=== PATIENT | male | born 1965 | race Caucasian/White ===

== ENCOUNTER → 2019-06-09 | Day surgery (SDC) | payer BC ==
[~2019-06-09] MED LIST: HYDROmorphone 2 MG/ML VIAL IV PRN; IV RINGERS,LACTATED 1000ML 1,000 ML IV SCH; MORPHINE SULFATE 2 MG/ML VIAL. IV PRN; OLME5TAB4 PO; ONDANSETRON PF 4 MG/2 ML VIAL. IV PRN; PROCHLORPERAZINE 10 MG/2 ML VIAL. IV PRN; PROPOFOL 60 ML IV ONE; fentaNYL PF VIAL 100 MCG/2 ML VIAL IV PRN
[2019-06-09 13:40] VITALS: BP 132/70
--- NOTE | 2019-07-18 08:54 | PDOC1 ---
History and Physical Date of Admission Date of Admission DATE: 06/09/19 TIME: 08:52 Identification/Chief Complaint Chief Complaint Screening colonoscopy Source Source: Patient History of Present Illness History of Present Illness Patient is a 54-year-old male who is never had a colonoscopy has no colon complaints at this time is here for screening colonoscopy Past Medical History Cardiovascular: No pertinent hx Pulmonary: Other (sleep apnea) GI: No pertinent hx Heme/Onc: No pertinent hx Hepatobiliary: No pertinent hx Psych: No pertinent hx Rheumatologic: No pertinent hx Infectious disease: No pertinent hx ENT: No pertinent hx Renal/: No pertinent hx Endocrine: No pertinent hx Dermatology: No pertinent hx Past Surgical History Past Surgical History: No pertinent history Family History Family History: No Significant Social History Smoke: No ALCOHOL: none Drugs: None Current Medications Current Medications Current Medications Ondansetron HCl (Zofran) 4 mg PRN Q6HRS PRN IV NAUSEA/VOMITING; Start 06/09/19 at 07:00; Stop 06/10/19 at 06:59; Status DC Fentanyl Citrate (Fentanyl 2ml Vial) 25 mcg PRN Q5MIN PRN IV MILD PAIN 1-3; Start 06/09/19 at 07:00; Stop 06/10/19 at 06:59; Status DC Fentanyl Citrate (Fentanyl 2ml Vial) 50 mcg PRN Q5MIN PRN IV MODERATE TO SEVERE PAIN; Start 06/09/19 at 07:00; Stop 06/10/19 at 06:59; Status DC Morphine Sulfate (Morphine Sulfate) 1 mg PRN Q10MIN PRN IV SEVERE PAIN 7-10; Start 06/09/19 at 07:00; Stop 06/10/19 at 06:59; Status DC Ringer's Solution 1,000 ml @ 30 mls/hr Q24H IV Last administered on 06/09/19at 12:35; Start 06/09/19 at 07:00; Stop 06/09/19 at 18:59; Status DC Hydromorphone HCl (Dilaudid) 0.5 mg PRN Q10MIN PRN IV SEV PAIN, Second choice; Start 06/09/19 at 07:00; Stop 06/10/19 at 06:59; Status DC Prochlorperazine Edisylate (Compazine) 5 mg PACU PRN PRN IV NAUSEA, MRX1; Start 06/09/19 at 07:00; Stop 06/10/19 at 06:59; Status DC Propofol 60 ml @ As Directed STK-MED ONCE IV ; Start 06/09/19 at 13:07; Stop 06/09/19 at 13:08; Status DC Active Scripts Active Reported Benicar (Olmesartan Medoxomil) 5 Mg Tablet 5 Mg PO DAILY Allergies Allergies: Coded Allergies: Penicillins (Verified Allergy, Intermediate, rash, 06/09/19) Physical Exam General: Alert, Oriented X3, Cooperative, No acute distress HEENT: Atraumatic, PERRLA, EOMI Lungs: Clear to auscultation, Normal air movement Heart: RRR Abdomen: Normal bowel sounds, Soft, No tenderness Rectal Exam: not examined Extremities: No edema Neuro: Normal speech VTE Prophylaxis Ordered VTE Prophylaxis Devices: No VTE Pharmacological Prophylaxi: No Assessment/Plan Assessment/Plan Screening colonoscopy TOMMY CARTER MD Jul 18, 2019 08:54
== END ==
LOC: ENDOS 12:00
PROVIDERS: ATTEND Surgery
DX: Z12.11 Encounter for screening for malignant neoplasm of colon (principal); K57.30 Diverticulosis of large intestine without perforation or abscess without bleeding; G47.30 Sleep apnea, unspecified; I10 Essential (primary) hypertension; E66.9 Obesity, unspecified; Z68.36 Body mass index [BMI] 36.0-36.9, adult; Z72.89 Other problems related to lifestyle; Z88.0 Allergy status to penicillin
CPT/HCPCS: 45378; J2704

== ENCOUNTER → 2020-12-31 | Outpatient (CLI) | payer BC ==
[2019-06-09 13:40] VITALS: BP 132/70
[~2020-12-31] MED LIST changes: -HYDROmorphone 2 MG/ML VIAL IV PRN; -IV RINGERS,LACTATED 1000ML 1,000 ML IV SCH; -MORPHINE SULFATE 2 MG/ML VIAL. IV PRN; -ONDANSETRON PF 4 MG/2 ML VIAL. IV PRN; -PROCHLORPERAZINE 10 MG/2 ML VIAL. IV PRN; -PROPOFOL 60 ML IV ONE; -fentaNYL PF VIAL 100 MCG/2 ML VIAL IV PRN
--- NOTE | 2020-12-31 09:12 | KCIC ---
EXAM: ULTRASOUND ABDOMEN COMPLETE CLINICAL HISTORY: Reason: ELEVATED LIVER ENZYMES / Spl. Instructions: / History: COMPARISON: None available. TECHNIQUE: Ultrasound of the upper abdomen was performed. FINDINGS: The pancreas, aorta, IVC are not well-visualized due to bowel gas. There is increased echogenicity id entified throughout the liver likely hepatic steatosis. The liver length measures 1.9 cm. No evidence of gallstones. The common bile duct measures 3.2 mm in transverse dimension. The right kidney measur es 12.3 x 6.1 x 6.4 cm. The left kidney measures 13.7 x 5.6 x 6.0 cm. The spleen measures 14.6 cm in length. IMPRESSION: 1. Hepatomegaly with hepatic steatosis. 2. Splenomegaly. Electronically signed by: Tolu Cantrell MD (12/31/2020 9:09 AM) [id number]
== END ==
LOC: KCIC US 08:13
PROVIDERS: ATTEND Family Medicine
DX: R16.2 Hepatomegaly with splenomegaly, not elsewhere classified (principal); K76.0 Fatty (change of) liver, not elsewhere classified; R74.8 Abnormal levels of other serum enzymes
CPT/HCPCS: 76700

== ENCOUNTER 2021-09-01 11:49 | Inpatient (IN) | payer BC ==
[~2021-09-01] VITALS: Ht 185.4 cm; Wt 135.1 kg
[2021-09-01 12:57] LABS: BASO # 0.1 x10^3/uL (0.0-0.2); BASO % 1 % (0-3); EOS # 0.1 x10^3/uL (0.0-0.7); EOS % 3 % (0-3); HEMATOCRIT 40.5 % (39.0-53.0); HEMOGLOBIN 13.8 g/dL (13.0-17.5); LYMPH # 1.1 x10^3/uL (1.0-4.8); LYMPH % 19 % (24-48); MEAN CORPUSCULAR HEMOGLOBIN 33 pg (25-35); MEAN CORPUSCULAR HGB CONC 34 g/dL (31-37); MEAN CORPUSCULAR VOLUME 98 fL (79-100); MONO # 0.5 x10^3/uL (0.0-1.1); MONO % 9 % (0-9); NEUT # 3.9 x10^3/uL (1.8-7.7); NEUT % 69 % (31-73); PLATELET COUNT 181 x10^3/uL (140-400); RED BLOOD COUNT 4.15 x10^6/uL (4.30-5.70); RED CELL DISTRIBUTION WIDTH 12.6 % (11.5-14.5); WHITE BLOOD COUNT 5.7 x10^3/uL (4.0-11.0)
--- NOTE | 2021-09-01 13:00 | RAD ---
EXAM: Chest, single view. HISTORY: Swelling. COMPARISON: None. FINDINGS: A frontal view of the chest is obtained. There are small focal opacity overlying the bilate ral upper lobes and right mid to lower thorax possibly due to atelectasis, scarring or infiltrate. Th ere is no consolidation, pleural effusion or pneumothorax. There is a prominent cardiac silhouette. IMPRESSION: Bilateral focal atelectasis, scarring or interstitial infiltrate. There is no consolidate d pneumonia. Electronically signed by: Guerline Olvera MD (09/01/2021 12:58 PM) [id number]
[2021-09-01 13:05] LABS: PROTHROMBIN TIME PATIENT 12.7 SEC (11.7-14.0)
[2021-09-01 13:09] LABS: CALCIUM 8.3 mg/dL (8.5-10.1); CREATININE 1.1 mg/dL (0.7-1.3)
[2021-09-01 13:16] LABS: ALBUMIN 3.3 g/dL (3.4-5.0); ALBUMIN/GLOBULIN RATIO 0.8 (1.0-1.7); TOTAL BILIRUBIN 0.3 mg/dL (0.2-1.0); TOTAL PROTEIN 7.2 g/dL (6.4-8.2)
[2021-09-01] MEDS ORDERED: IOHEXOL 350 MG/ML 100 ML VIAL. IV ONE (13:30)
[2021-09-01] MEDS ORDERED: CONTRAST GIVEN. MC PRN (13:30)
--- NOTE | 2021-09-01 13:32 | RAD ---
US DPLX VENOUS EXTREMITY LOWER LT History: Reason: LLE swelling / Spl. Instructions: / History: Comparison: None. Technique: Multiple longitudinal and transverse high resolution real-time images of the venous system of left lower extremity were obtained with color and Doppler sampling. Findings: Deep vein thrombosis throughout the left lower extremity involving the common femoral, deep femoral, superficial femoral, popliteal and calf veins. There is occlusive thrombus within the superficial fem oral through the calf veins. Impression: 1. Extensive deep vein thrombosis throughout the left lower extremity. Electronically signed by: Phillip Newton DO (09/01/2021 1:30 PM) [id number]
[2021-09-01] MEDS ORDERED: HEPARIN for IV BOLUS 10,000 UNIT/10 ML VIAL. IV ONE (14:00)
[2021-09-01] MEDS ORDERED: HEPARIN for IV BOLUS 10,000 UNIT/10 ML VIAL. IV PRN (14:00)
--- NOTE | 2021-09-01 14:09 | RAD ---
Examination: CT angiography chest with IV contrast HISTORY: Pulmonary embolism, History of positive for DVT COMPARISON: None available TECHNIQUE: Axial CT angiographic images were performed with IV contrast. Coronal and sagittal 3-D MIP reformats are performed Exposure: One or more of the following individualized dose reduction techniques were utilized for thi s examination: 1. Automated exposure control 2. Adjustment of the mA and/or kV according to patient size 3. Use of iterative reconstruction technique. FINDINGS: The central airways are patent. The caliber of the aorta grossly appears unremarkable. There is no ev idence of filling defect identified in the main pulmonary arterial trunk. There is filling defect gautam ntified in the distal right and left main pulmonary arteries extending into the left upper lobe, left lingular, left lower lobe, right upper lobe and right lower lobe pulmonary arterial branches likely multiple pulmonary emboli. Coronary artery calcifications identified. Minimal bibasilar lung atelectasis. Diffuse decreased atte nuation noted in the liver likely hepatic steatosis. The spleen, adrenals grossly appears unremarkabl e Moderate degenerative changes thoracic spine. IMPRESSION: 1. Multiple filling defects identified in the distal right and left main pulmonary arteries extendin g into the left upper lobe, left lower lobe, right upper lobe and right lower lobe pulmonary arterial branches likely multiple pulmonary emboli. 2. Coronary artery calcifications. 3. Hepatic steatosis. FOR INTERNAL CODING PURPOSES Critical results called to [facility] at 09/01/2021 2:00 PM. RESULT CODE: (C) 1. Electronically signed by: Tolu Cantrell MD (09/01/2021 2:06 PM) [id number]
[2021-09-01] MEDS: HEPARIN 25,000UTS/250ML PREMIX 250 ML IV PRN (15:16)
--- NOTE | 2021-09-01 16:36 | PHYS DOC ---
Past Medical History Past Surgical History: Other Additional Past Surgical Histo: EYE SURGERY Smoking Status: Never Smoker Alcohol Use: Heavy Additional Information: daily beer drinker Adult General Chief Complaint Chief Complaint: LOWER EXT PAIN HPI HPI The patient is a 56-year-old male with a history of hypertension and who is otherwise healthy. He has a history of what sounds like an episode of superficial thrombophlebitis in the past affecting one of his legs. He presents for evaluation of about 2 weeks of progressive swelling and discomfort to his entire left leg. Primary doctor was concerned about DVT so sent him in for evaluation. Patient denies any other focal or specific symptoms and specifically denies fevers, nausea or vomiting, upper respiratory congestion/rhinorrhea, cough, sore throat, shortness of breath or chest pain of any kind, abdominal pain of any kind, flank pain, midline back pain, dysuria, hematuria, polyuria or oliguria, changes in bowel habits. Patient is alert and pleasantly and appropriately interactive and in no acute distress with appropriate vital signs upon initial evaluation here in the emergency department. Review of Systems Review of Systems A 12 point review of systems was completed and was negative except where noted in HPI above. Current Medications Current Medications Current Medications Medications (Trade) Dose Ordered Sig/Sanchez Start Time Stop Time Status Last Admin Dose Admin Heparin Sodium (Porcine) (Heparin Sodium) 2,050 unit PRN Q6HRS PRN 09/01/21 14:00 Heparin Sodium/ Dextrose 250 ml @ 20 mls/hr CONT PRN 09/01/21 14:00 09/01/21 15:16 20 MLS/HR Info (CONTRAST GIVEN -- Rx MONITORING) 1 each PRN DAILY PRN 09/01/21 13:30 09/03/21 13:29 Iohexol (Omnipaque 350 Mg/ml) 100 ml 1X ONCE 09/01/21 13:30 09/01/21 13:31 DC 09/01/21 13:33 100 ML Allergies Allergies Allergies Coded Allergies Type Severity Reaction Last Updated Verified Penicillins Allergy Intermediate rash 06/09/19 Yes Physical Exam Physical Exam Sinus rhythm, rate 83, no acute ST elevation or depression, MA 160, QRS 104, QTc 440, EP interpretation. Nonischemic tracing, intervals appropriate. Current Patient Data Vital Signs Vital Signs Date Time Temp Pulse Resp B/P (MAP) Pulse Ox O2 Delivery O2 Flow Rate FiO2 09/01/21 14:04 80 20 163/81 (108) 96 Room Air 09/01/21 11:57 98.1 98.1 Lab Values Laboratory Tests Test 09/01/21 12:40 09/01/21 14:03 White Blood Count 5.7 x10^3/uL (4.0-11.0) Red Blood Count 4.15 x10^6/uL (4.30-5.70) L Hemoglobin 13.8 g/dL (13.0-17.5) Hematocrit 40.5 % (39.0-53.0) Mean Corpuscular Volume 98 fL (79-100) Mean Corpuscular Hemoglobin 33 pg (25-35) Mean Corpuscular Hemoglobin Concent 34 g/dL (31-37) Red Cell Distribution Width 12.6 % (11.5-14.5) Platelet Count 181 x10^3/uL (140-400) Neutrophils (%) (Auto) 69 % (31-73) Lymphocytes (%) (Auto) 19 % (24-48) L Monocytes (%) (Auto) 9 % (0-9) Eosinophils (%) (Auto) 3 % (0-3) Basophils (%) (Auto) 1 % (0-3) Neutrophils # (Auto) 3.9 x10^3/uL (1.8-7.7) Lymphocytes # (Auto) 1.1 x10^3/uL (1.0-4.8) Monocytes # (Auto) 0.5 x10^3/uL (0.0-1.1) Eosinophils # (Auto) 0.1 x10^3/uL (0.0-0.7) Basophils # (Auto) 0.1 x10^3/uL (0.0-0.2) Prothrombin Time 12.7 SEC (11.7-14.0) Prothrombin Time INR 1.0 (0.8-1.1) Activated Partial Thromboplast Time 26 SEC (24-38) Sodium Level 140 mmol/L (136-145) Potassium Level 4.0 mmol/L (3.5-5.1) Chloride Level 102 mmol/L (98-107) Carbon Dioxide Level 28 mmol/L (21-32) Anion Gap 10 (6-14) Blood Urea Nitrogen 14 mg/dL (8-26) Creatinine 1.1 mg/dL (0.7-1.3) Estimated GFR (Cockcroft-Gault) 69.0 BUN/Creatinine Ratio 13 (6-20) Glucose Level 132 mg/dL (70-99) H Calcium Level 8.3 mg/dL (8.5-10.1) L Total Bilirubin 0.3 mg/dL (0.2-1.0) Aspartate Amino Transferase (AST) 17 U/L (15-37) Alanine Aminotransferase (ALT) 37 U/L (16-63) Alkaline Phosphatase 54 U/L (46-116) Creatine Kinase 164 U/L (39-308) Troponin I High Sensitivity 11 ng/L (4-75) RP-Xia-L-Type Natriuretic Peptide 106 pg/mL (0-124) Total Protein 7.2 g/dL (6.4-8.2) Albumin 3.3 g/dL (3.4-5.0) L Albumin/Globulin Ratio 0.8 (1.0-1.7) L SARS-CoV-2 Antigen (Rapid) Negative (NEGATIVE) Laboratory Tests 09/01/21 12:40 Laboratory Tests 09/01/21 12:40 EKG EKG [] Radiology/Procedures Radiology/Procedures Examination: CT angiography chest with IV contrast HISTORY: Pulmonary embolism, History of positive for DVT COMPARISON: None available TECHNIQUE: Axial CT angiographic images were performed with IV contrast. Coronal and sagittal 3-D MIP reformats are performed Exposure: One or more of the following individualized dose reduction techniques were utilized for this examination: 1. Automated exposure control 2. Adjustment of the mA and/or kV according to patient size 3. Use of iterative reconstruction technique. FINDINGS: The central airways are patent. The caliber of the aorta grossly appears unremarkable. There is no evidence of filling defect identified in the main pulmonary arterial trunk. There is filling defect identified in the distal right and left main pulmonary arteries extending into the left upper lobe, left lingular, left lower lobe, right upper lobe and right lower lobe pulmonary arterial branches likely multiple pulmonary emboli. Coronary artery calcifications identified. Minimal bibasilar lung atelectasis. Diffuse decreased attenuation noted in the liver likely hepatic steatosis. The spleen, adrenals grossly appears unremarkable Moderate degenerative changes thoracic spine. IMPRESSION: 1. Multiple filling defects identified in the distal right and left main pulmonary arteries extending into the left upper lobe, left lower lobe, right upper lobe and right lower lobe pulmonary arterial branches likely multiple pulmonary emboli. 2. Coronary artery calcifications. 3. Hepatic steatosis. FOR INTERNAL CODING PURPOSES Critical results called to [facility] ER at 09/01/2021 2:00 PM. RESULT CODE: (C) US DPLX VENOUS EXTREMITY LOWER LT History: Reason: LLE swelling / Spl. Instructions: / History: Comparison: None. Technique: Multiple longitudinal and transverse high resolution real-time images of the venous system of left lower extremity were obtained with color and Doppler sampling. Findings: Deep vein thrombosis throughout the left lower extremity involving the common femoral, deep femoral, superficial femoral, popliteal and calf veins. There is occlusive thrombus within the superficial femoral through the calf veins. Impression: 1. Extensive deep vein thrombosis throughout the left lower extremity. Electronically signed by: Phillip Newton DO (09/01/2021 1:30 PM) [id number] DICTATED and SIGNED BY: PHILLIP NEWTON DO DATE: 09/01/21 [id number] 1. Electronically signed by: Tolu Cantrell MD (09/01/2021 2:06 PM) [id number] DICTATED and SIGNED BY: TOLU CANTRELL MD DATE: 09/01/21 [id number] Course & Med Decision Making Course & Med Decision Making Imaging positive for extensive occlusive left lower extremity DVT burden with bilateral PE noted as well. Patient hemodynamically stable and resting very comfortably on serial reassessments. Case discussed with vascular surgery who recommend CT venogram of the abdomen and pelvis to further evaluate clot burden and also recommend that we involve IR in the case. Heparin bolus given and drip initiated. Case discussed with Dr. Simental who graciously accepts for admiss ion. CC time 43 minutes. Dragon Disclaimer Dragon Disclaimer This electronic medical record was generated, in whole or in part, using a voice recognition dictation system. Departure Departure Impression: Primary Impression: Left leg DVT Additional Impression: Bilateral pulmonary embolism Disposition: ADMITTED INPATIENT Condition: GUARDED Referrals: LOLA ADAN MD (PCP) Problem Qualifiers SHANTANU CORNELL MD Sep 01, 2021 16:36
[2021-09-01] MEDS ORDERED: ONDANSETRON PF 4 MG/2 ML VIAL. IVP PRN ×2 (17:00→20:00)
[2021-09-01] MEDS ORDERED: LOSA-73 PO (17:49)
[2021-09-01] MEDS ORDERED: ALPR1TAB6 PO (17:49)
[2021-09-01] MEDS ORDERED: ALPRAZolam 1 MG TABLET PO PRN (18:30)
[2021-09-01] MEDS ORDERED: hydrALAZINE 20 MG/ML VIAL. IVP PRN (18:30)
[2021-09-01 19:00] VITALS: BP 159/87
[2021-09-01] MEDS ORDERED: ZOLPIDEM 5 MG TABLET. PO PRN (20:00)
[2021-09-01] MEDS ORDERED: ACETAMINOPHEN 325 MG TABLET. PO PRN (20:00)
[2021-09-01] MEDS ORDERED: ELECTROLYTE (NON-ICU) PROTOCOL. MC PRN (20:00)
[2021-09-01] MEDS ORDERED: CALCIUM CARBONATE 500 MG TAB.CHEW PO PRN (20:00)
[2021-09-01] MEDS: SENNOSIDES/DOCUSATE 8.6/50MG TABLET. PO SCH (20:32)
--- NOTE | 2021-09-01 21:48 | PDOC1 ---
History and Physical Date of Service: DOS: DATE: 09/01/21 TIME: 21:40 Chief Complaint: Chief Complain: Left lower extremity pain History of Present Illness: HPI: Patient is a 56-year-old white male presented to the emergency room today due to 10 to 14 days worsening swelling to his left lower extremity. He was seen by his PCP about this this morning and was sent to the emergency room due to concer n for DVT. In the ER lower extremity duplexes showed extensive clot burden of the left lower extremity. Chest CTA showed bilateral pulmonary emboli. He was started on heparin drip and admitted for further treatment and work-up. When I saw the patient he was resting in bed really no complaints. Denies any known history of clotting disorders. Vascular surgery consulted in emergency room. Recommending CT venogram. We will also consult interventional radiology. Past Medical/Surgical History: PMH/PSH: Hypertension Allergies: Allergies: Coded Allergies: Penicillins (Verified Allergy, Intermediate, rash, 06/09/19) Family History: Family History: Hypertension Social History: Social History: Occasional alcohol use. Denies tobacco or drug use Current Medications: Current Medications Current Medications Iohexol (Omnipaque 350 Mg/ml) 100 ml 1X ONCE IV Last administered on 09/01/21at 13:33; Start 09/01/21 at 13:30; Stop 09/01/21 at 13:31; Status DC Info (CONTRAST GIVEN -- Rx MONITORING) 1 each PRN DAILY PRN MC SEE COMMENTS; Start 09/01/21 at 13:30; Stop 09/03/21 at 13:29 Heparin Sodium (Porcine) (Heparin Sodium) 10,000 unit 1X ONCE IV Last administered on 09/01/21at 15:16; Start 09/01/21 at 14:00; Stop 09/01/21 at 14:17; Status DC Heparin Sodium/ Dextrose 250 ml @ 20 mls/hr CONT PRN IV PER PROTOCOL Last administered on 09/01/21at 15:16; Start 09/01/21 at 14:00 Heparin Sodium (Porcine) (Heparin Sodium) 4,050 unit PRN Q6HRS PRN IV FOR UFH LEVEL LESS THAN 0.2; Start 09/01/21 at 14:00 Heparin Sodium (Porcine) (Heparin Sodium) 2,050 unit PRN Q6HRS PRN IV FOR UFH LEVEL 0.2 - 0.29; Start 09/01/21 at 14:00 Ondansetron HCl (Zofran) 4 mg PRN Q8HRS PRN IVP NAUSEA/VOMITING; Start 09/01/21 at 17:00; Stop 09/02/21 at 16:59 Alprazolam (Xanax) 1 mg QHS PRN PO INSOMNIA; Start 09/01/21 at 18:30 Losartan Potassium (Cozaar) 25 mg DAILY PO ; Start 09/02/21 at 09:00 Hydralazine HCl (Apresoline Inj) 10 mg PRN Q4HRS PRN IVP ELEVATED BP, SEE COMMENTS; Start 09/01/21 at 18:30 Ondansetron HCl (Zofran) 4 mg PRN Q6HRS PRN IVP NAUSEA/VOMITING; Start 09/01/21 at 20:00 Calcium Carbonate/ Glycine (Tums) 500 mg PRN Q3HRS PRN PO UPSET STOMACH; Start 09/01/21 at 20:00 Zolpidem Tartrate (Ambien) 5 mg PRN QHS PRN PO INSOMNIA, MAY REPEAT IN 1HR; Start 09/01/21 at 20:00 Info (Non-Icu Electrolyte Protocol) 1 ea PRN DAILY PRN MC SEE COMMENTS; Start 09/01/21 at 20:00 Oxycodone/ Acetaminophen (Percocet 5/325) 1 tab PRN Q4HRS PRN PO MILD PAIN, 1ST CHOICE; Start 09/01/21 at 20:00 Oxycodone/ Acetaminophen (Percocet 5/325) 2 tab PRN Q4HRS PRN PO MODERATE PAIN, SEVERE PAIN; Start 09/01/21 at 20:00 Acetaminophen (Tylenol) 650 mg PRN Q6HRS PRN PO Headaches, Temp > 101.5F; Start 09/01/21 at 20:00 Senna/Docusate Sodium (Senna Plus) 1 tab BID PO Last administered on 09/01/21at 20:32; Start 09/01/21 at 21:00 Active Scripts Active Reported Alprazolam 1 Mg Tablet 1 Tab PO QHS PRN Losartan Potassium 50 Mg Tablet 25 Mg PO DAILY Benicar (Olmesartan Medoxomil) 5 Mg Tablet 5 Mg PO DAILY ROS: Review of Systems Review of System Unless noted in HPI 14 point review of systems was negative Physical Exam: Vital Signs: Vital Signs Date Time Temp Pulse Resp B/P (MAP) Pulse Ox O2 Delivery O2 Flow Rate FiO2 09/01/21 19:00 99.0 83 20 159/87 (111) 94 Room Air 99.0 Physcial Exam: GEN: No apparent distress. Alert and oriented HEENT: Normal cephalic, atraumatic, external auditory canals are patent EYES: Extraocular muscles are intact, pupil are equally round and reactive to light and accommodation MUSCULOSKELETAL: Well developed , well nourished, good range of motion ENDOCRINE: No thyromegaly was palpated LYMPHATICS: No cervical chain or axillary nodes were noted HEMATOPOIETIC: No bruising NECK: Supple, no JVD, no thyromegaly was noted LUNGS: Clear to auscultation in all lung vaughan without rhonchi or wheezing HEART: RRR, S!, S2 present. Peripheral pulses intact, no obvious murmurs noted ABDOMEN: Soft, nontender. Positive bowel sounds, no organomegaly, normal bowel sounds EXTREMITIES: Left lower extremity to erythematous. Up to the level of knee. No tenderness to palpation surprisingly NEUROLOGIC: Normal speech and tone. A&O x 3, moves all extremities, no obvious focal deficits PSYCHIATRIC: Normal affect, normal mood. Stable SKIN: No ulcerations or rashes, good skin turgor, no jaundice VASCULAR: Good capillary refill, neurovascular bundle appears to be intact Labs: Labs: Laboratory Tests Test 09/01/21 12:40 09/01/21 14:03 09/01/21 17:18 White Blood Count 5.7 x10^3/uL (4.0-11.0) Red Blood Count 4.15 x10^6/uL (4.30-5.70) Hemoglobin 13.8 g/dL (13.0-17.5) Hematocrit 40.5 % (39.0-53.0) Mean Corpuscular Volume 98 fL (79-100) Mean Corpuscular Hemoglobin 33 pg (25-35) Mean Corpuscular Hemoglobin Concent 34 g/dL (31-37) Red Cell Distribution Width 12.6 % (11.5-14.5) Platelet Count 181 x10^3/uL (140-400) Neutrophils (%) (Auto) 69 % (31-73) Lymphocytes (%) (Auto) 19 % (24-48) Monocytes (%) (Auto) 9 % (0-9) Eosinophils (%) (Auto) 3 % (0-3) Basophils (%) (Auto) 1 % (0-3) Neutrophils # (Auto) 3.9 x10^3/uL (1.8-7.7) Lymphocytes # (Auto) 1.1 x10^3/uL (1.0-4.8) Monocytes # (Auto) 0.5 x10^3/uL (0.0-1.1) Eosinophils # (Auto) 0.1 x10^3/uL (0.0-0.7) Basophils # (Auto) 0.1 x10^3/uL (0.0-0.2) Prothrombin Time 12.7 SEC (11.7-14.0) Prothromb Time International Ratio 1.0 (0.8-1.1) Activated Partial Thromboplast Time 26 SEC (24-38) Sodium Level 140 mmol/L (136-145) Potassium Level 4.0 mmol/L (3.5-5.1) Chloride Level 102 mmol/L (98-107) Carbon Dioxide Level 28 mmol/L (21-32) Anion Gap 10 (6-14) Blood Urea Nitrogen 14 mg/dL (8-26) Creatinine 1.1 mg/dL (0.7-1.3) Estimated GFR (Cockcroft-Gault) 69.0 BUN/Creatinine Ratio 13 (6-20) Glucose Level 132 mg/dL (70-99) Calcium Level 8.3 mg/dL (8.5-10.1) Total Bilirubin 0.3 mg/dL (0.2-1.0) Aspartate Amino Transf (AST/SGOT) 17 U/L (15-37) Alanine Aminotransferase (ALT/SGPT) 37 U/L (16-63) Alkaline Phosphatase 54 U/L (46-116) Creatine Kinase 164 U/L (39-308) Troponin I High Sensitivity 11 ng/L (4-75) 16 ng/L (4-75) DV-Nbz-L-Type Natriuretic Peptide 106 pg/mL (0-124) Total Protein 7.2 g/dL (6.4-8.2) Albumin 3.3 g/dL (3.4-5.0) Albumin/Globulin Ratio 0.8 (1.0-1.7) SARS-CoV-2 Antigen (Rapid) Negative (NEGATIVE) Laboratory Tests Test 09/01/21 12:40 09/01/21 14:03 09/01/21 17:18 White Blood Count 5.7 x10^3/uL (4.0-11.0) Red Blood Count 4.15 x10^6/uL (4.30-5.70) Hemoglobin 13.8 g/dL (13.0-17.5) Hematocrit 40.5 % (39.0-53.0) Mean Corpuscular Volume 98 fL (79-100) Mean Corpuscular Hemoglobin 33 pg (25-35) Mean Corpuscular Hemoglobin Concent 34 g/dL (31-37) Red Cell Distribution Width 12.6 % (11.5-14.5) Platelet Count 181 x10^3/uL (140-400) Neutrophils (%) (Auto) 69 % (31-73) Lymphocytes (%) (Auto) 19 % (24-48) Monocytes (%) (Auto) 9 % (0-9) Eosinophils (%) (Auto) 3 % (0-3) Basophils (%) (Auto) 1 % (0-3) Neutrophils # (Auto) 3.9 x10^3/uL (1.8-7.7) Lymphocytes # (Auto) 1.1 x10^3/uL (1.0-4.8) Monocytes # (Auto) 0.5 x10^3/uL (0.0-1.1) Eosinophils # (Auto) 0.1 x10^3/uL (0.0-0.7) Basophils # (Auto) 0.1 x10^3/uL (0.0-0.2) Prothrombin Time 12.7 SEC (11.7-14.0) Prothromb Time International Ratio 1.0 (0.8-1.1) Activated Partial Thromboplast Time 26 SEC (24-38) Sodium Level 140 mmol/L (136-145) Potassium Level 4.0 mmol/L (3.5-5.1) Chloride Level 102 mmol/L (98-107) Carbon Dioxide Level 28 mmol/L (21-32) Anion Gap 10 (6-14) Blood Urea Nitrogen 14 mg/dL (8-26) Creatinine 1.1 mg/dL (0.7-1.3) Estimated GFR (Cockcroft-Gault) 69.0 BUN/Creatinine Ratio 13 (6-20) Glucose Level 132 mg/dL (70-99) Calcium Level 8.3 mg/dL (8.5-10.1) Total Bilirubin 0.3 mg/dL (0.2-1.0) Aspartate Amino Transf (AST/SGOT) 17 U/L (15-37) Alanine Aminotransferase (ALT/SGPT) 37 U/L (16-63) Alkaline Phosphatase 54 U/L (46-116) Creatine Kinase 164 U/L (39-308) Troponin I High Sensitivity 11 ng/L (4-75) 16 ng/L (4-75) MA-Tup-X-Type Natriuretic Peptide 106 pg/mL (0-124) Total Protein 7.2 g/dL (6.4-8.2) Albumin 3.3 g/dL (3.4-5.0) Albumin/Globulin Ratio 0.8 (1.0-1.7) SARS-CoV-2 Antigen (Rapid) Negative (NEGATIVE) Assessment/Plan Assessment/Plan Bilateral pulmonary embolus, left lower extremity DVT. History of hypertension -Patient worsening left lower extremity swelling. Found to have extensive clot burden in LLE and bilateral pulmonary emboli -Started on heparin drip, continue -Vascular surgery consulted. Recommending CT venogram -Consult to interventional radiology -Cardiac diet -Heparin drip will serve as DVT prophylaxis -will start basic hypercoagulable work-up Justifications for Admission Other Justification PINEDA DON MD Sep 01, 2021 21:48
[2021-09-01 23:00] VITALS: BP 147/87
[2021-09-01] MEDS: HEPARIN for IV BOLUS 10,000 UNIT/10 ML VIAL. IV PRN (23:39)
[2021-09-02] VITALS (11 sets, daily range): BP systolic 127–188; BP diastolic 69–110
[2021-09-02] MEDS: HEPARIN 25,000UTS/250ML PREMIX 250 ML IV PRN (05:25)
--- NOTE | 2021-09-02 06:33 | EKG ---
[facility] [address] [place] [address] Test Date: 2021-09-01 Test Time: 14:03:24 Pat Name: DEVIKA CARSON Department: Room: Gender: Ice Cream Dipper: : 1965 Requested By: SHANTANU CORNELL Order Number: [id number] Reading MD: Measurements Intervals Elsa Rate: 83 P: 32 OR: 160 QRS: 46 QRSD: 104 T: 32 QT: 370 QTc: 440 Interpretive Statements SINUS RHYTHM NORMAL ECG RI6.02 No previous ECG available for comparison
[2021-09-02 07:54] LABS: BASO % 1 % (0-3); EOS # 0.2 x10^3/uL (0.0-0.7); EOS % 4 % (0-3); HEMATOCRIT 41.2 % (39.0-53.0); HEMOGLOBIN 14.1 g/dL (13.0-17.5); LYMPH # 1.5 x10^3/uL (1.0-4.8); LYMPH % 30 % (24-48); MEAN CORPUSCULAR HEMOGLOBIN 34 pg (25-35); MEAN CORPUSCULAR HGB CONC 34 g/dL (31-37); MEAN CORPUSCULAR VOLUME 98 fL (79-100); MONO # 0.5 x10^3/uL (0.0-1.1); MONO % 9 % (0-9); NEUT # 2.9 x10^3/uL (1.8-7.7); NEUT % 56 % (31-73); PLATELET COUNT 161 x10^3/uL (140-400); RED BLOOD COUNT 4.22 x10^6/uL (4.30-5.70); RED CELL DISTRIBUTION WIDTH 12.8 % (11.5-14.5); WHITE BLOOD COUNT 5.2 x10^3/uL (4.0-11.0)
[2021-09-02 08:11] LABS: CALCIUM 8.5 mg/dL (8.5-10.1); CREATININE 1.1 mg/dL (0.7-1.3); POTASSIUM 4.5 mmol/L (3.5-5.1)
--- NOTE | 2021-09-02 09:21 | PDOC2 ---
INTERV RADIOLOGY CONSULT INPT Date of Consult 09.02.21 Reason for Consult Left Lower Extremity DVT. Swelling, pain. Referring Physician Simental Identification/Chief Complaint 56 year old male with 2 weeks of progressive LLE edema. Part of job involves long periods of driving, which may have provoked event. No history dvt, malignancy, or other known hypercoaguable condition. US showed clot in LLE from below knee basically to saphenofemoral junction. Also found to have asymptomatic PE, with relatively small clot burden. He is on room air with normal vitals. Heparin started. LLE is somewhat less swollen today with some residual edema. No phlegmasia. Normal exam otherwise. . Past Medical History Cardiovascular: HTN Pulmonary: No pertinent hx GI: No pertinent hx Heme/Onc: No pertinent hx Hepatobiliary: No pertinent hx Psych: No pertinent hx Rheumatologic: No pertinent hx Infectious disease: No pertinent hx ENT: No pertinent hx Renal/: No pertinent hx Endocrine: No pertinent hx Dermatology: No pertinent hx Past Surgical History No pertinent history Current Problem List (1) Left leg DVT (2) Bilateral pulmonary embolism Current Medications Current Medications Iohexol (Omnipaque 350 Mg/ml) 100 ml 1X ONCE IV Last administered on 09/01/21at 13:33; Start 09/01/21 at 13:30; Stop 09/01/21 at 13:31; Status DC Info (CONTRAST GIVEN -- Rx MONITORING) 1 each PRN DAILY PRN MC SEE COMMENTS; Start 09/01/21 at 13:30; Stop 09/03/21 at 13:29 Heparin Sodium (Porcine) (Heparin Sodium) 10,000 unit 1X ONCE IV Last administered on 09/01/21at 15:16; Start 09/01/21 at 14:00; Stop 09/01/21 at 14:17; Status DC Heparin Sodium/ Dextrose 250 ml @ 20 mls/hr CONT PRN IV PER PROTOCOL Last administered on 09/02/21at 05:25; Start 09/01/21 at 14:00 Heparin Sodium (Porcine) (Heparin Sodium) 4,050 unit PRN Q6HRS PRN IV FOR UFH LEVEL LESS THAN 0.2; Start 09/01/21 at 14:00 Heparin Sodium (Porcine) (Heparin Sodium) 2,050 unit PRN Q6HRS PRN IV FOR UFH LEVEL 0.2 - 0.29 Last administered on 09/01/21at 23:39; Start 09/01/21 at 14:00 Ondansetron HCl (Zofran) 4 mg PRN Q8HRS PRN IVP NAUSEA/VOMITING; Start 09/01/21 at 17:00; Stop 09/02/21 at 16:59 Alprazolam (Xanax) 1 mg QHS PRN PO INSOMNIA Last administered on 09/01/21at 23:34; Start 09/01/21 at 18:30 Losartan Potassium (Cozaar) 25 mg DAILY PO ; Start 09/02/21 at 09:00 Hydralazine HCl (Apresoline Inj) 10 mg PRN Q4HRS PRN IVP ELEVATED BP, SEE COMMENTS; Start 09/01/21 at 18:30 Ondansetron HCl (Zofran) 4 mg PRN Q6HRS PRN IVP NAUSEA/VOMITING; Start 09/01/21 at 20:00 Calcium Carbonate/ Glycine (Tums) 500 mg PRN Q3HRS PRN PO UPSET STOMACH; Start 09/01/21 at 20:00 Zolpidem Tartrate (Ambien) 5 mg PRN QHS PRN PO INSOMNIA, MAY REPEAT IN 1HR; Start 09/01/21 at 20:00 Info (Non-Icu Electrolyte Protocol) 1 ea PRN DAILY PRN MC SEE COMMENTS; Start 09/01/21 at 20:00 Oxycodone/ Acetaminophen (Percocet 5/325) 1 tab PRN Q4HRS PRN PO MILD PAIN, 1ST CHOICE; Start 09/01/21 at 20:00 Oxycodone/ Acetaminophen (Percocet 5/325) 2 tab PRN Q4HRS PRN PO MODERATE PAIN, SEVERE PAIN; Start 09/01/21 at 20:00 Acetaminophen (Tylenol) 650 mg PRN Q6HRS PRN PO Headaches, Temp > 101.5F; Start 09/01/21 at 20:00 Senna/Docusate Sodium (Senna Plus) 1 tab BID PO Last administered on 09/01/21at 20:32; Start 09/01/21 at 21:00 Active Scripts Active Reported Alprazolam 1 Mg Tablet 1 Tab PO QHS PRN Losartan Potassium 50 Mg Tablet 25 Mg PO DAILY Benicar (Olmesartan Medoxomil) 5 Mg Tablet 5 Mg PO DAILY Allergies Coded Allergies: Penicillins (Verified Allergy, Intermediate, rash, 06/09/19) Physical Exam Cardiovascular regular rate and rhythm Normal BP. Chest Clear Mental Status Normal Vascular No signs of phlegmasia or ischemia B lower extremities Vitals Vital Signs Date Time Temp Pulse Resp B/P (MAP) Pulse Ox O2 Delivery O2 Flow Rate FiO2 09/02/21 07:00 97.5 89 18 145/74 (97) 94 Room Air 97.5 Labs Laboratory Tests Test 09/01/21 12:40 09/01/21 14:03 09/01/21 17:18 09/01/21 21:05 White Blood Count 5.7 x10^3/uL (4.0-11.0) Red Blood Count 4.15 x10^6/uL (4.30-5.70) Hemoglobin 13.8 g/dL (13.0-17.5) Hematocrit 40.5 % (39.0-53.0) Mean Corpuscular Volume 98 fL (79-100) Mean Corpuscular Hemoglobin 33 pg (25-35) Mean Corpuscular Hemoglobin Concent 34 g/dL (31-37) Red Cell Distribution Width 12.6 % (11.5-14.5) Platelet Count 181 x10^3/uL (140-400) Neutrophils (%) (Auto) 69 % (31-73) Lymphocytes (%) (Auto) 19 % (24-48) Monocytes (%) (Auto) 9 % (0-9) Eosinophils (%) (Auto) 3 % (0-3) Basophils (%) (Auto) 1 % (0-3) Neutrophils # (Auto) 3.9 x10^3/uL (1.8-7.7) Lymphocytes # (Auto) 1.1 x10^3/uL (1.0-4.8) Monocytes # (Auto) 0.5 x10^3/uL (0.0-1.1) Eosinophils # (Auto) 0.1 x10^3/uL (0.0-0.7) Basophils # (Auto) 0.1 x10^3/uL (0.0-0.2) Prothrombin Time 12.7 SEC (11.7-14.0) Prothromb Time International Ratio 1.0 (0.8-1.1) Activated Partial Thromboplast Time 26 SEC (24-38) Sodium Level 140 mmol/L (136-145) Potassium Level 4.0 mmol/L (3.5-5.1) Chloride Level 102 mmol/L (98-107) Carbon Dioxide Level 28 mmol/L (21-32) Anion Gap 10 (6-14) Blood Urea Nitrogen 14 mg/dL (8-26) Creatinine 1.1 mg/dL (0.7-1.3) Estimated GFR (Cockcroft-Gault) 69.0 BUN/Creatinine Ratio 13 (6-20) Glucose Level 132 mg/dL (70-99) Calcium Level 8.3 mg/dL (8.5-10.1) Total Bilirubin 0.3 mg/dL (0.2-1.0) Aspartate Amino Transf (AST/SGOT) 17 U/L (15-37) Alanine Aminotransferase (ALT/SGPT) 37 U/L (16-63) Alkaline Phosphatase 54 U/L (46-116) Creatine Kinase 164 U/L (39-308) Troponin I High Sensitivity 11 ng/L (4-75) 16 ng/L (4-75) 15 ng/L (4-75) WW-Apg-P-Type Natriuretic Peptide 106 pg/mL (0-124) Total Protein 7.2 g/dL (6.4-8.2) Albumin 3.3 g/dL (3.4-5.0) Albumin/Globulin Ratio 0.8 (1.0-1.7) SARS-CoV-2 RNA (ADRIAN) Negative (Negative) SARS-CoV-2 Antigen (Rapid) Negative (NEGATIVE) Heparin Anti-Xa Act, Unfractionated 0.21 IU/mL (0.30-0.70) Test 09/01/21 23:50 09/02/21 06:20 Troponin I High Sensitivity 16 ng/L (4-75) White Blood Count 5.2 x10^3/uL (4.0-11.0) Red Blood Count 4.22 x10^6/uL (4.30-5.70) Hemoglobin 14.1 g/dL (13.0-17.5) Hematocrit 41.2 % (39.0-53.0) Mean Corpuscular Volume 98 fL (79-100) Mean Corpuscular Hemoglobin 34 pg (25-35) Mean Corpuscular Hemoglobin Concent 34 g/dL (31-37) Red Cell Distribution Width 12.8 % (11.5-14.5) Platelet Count 161 x10^3/uL (140-400) Neutrophils (%) (Auto) 56 % (31-73) Lymphocytes (%) (Auto) 30 % (24-48) Monocytes (%) (Auto) 9 % (0-9) Eosinophils (%) (Auto) 4 % (0-3) Basophils (%) (Auto) 1 % (0-3) Neutrophils # (Auto) 2.9 x10^3/uL (1.8-7.7) Lymphocytes # (Auto) 1.5 x10^3/uL (1.0-4.8) Monocytes # (Auto) 0.5 x10^3/uL (0.0-1.1) Eosinophils # (Auto) 0.2 x10^3/uL (0.0-0.7) Basophils # (Auto) 0.0 x10^3/uL (0.0-0.2) Heparin Anti-Xa Act, Unfractionated 0.20 IU/mL (0.30-0.70) Sodium Level 144 mmol/L (136-145) Potassium Level 4.5 mmol/L (3.5-5.1) Chloride Level 106 mmol/L (98-107) Carbon Dioxide Level 26 mmol/L (21-32) Anion Gap 12 (6-14) Blood Urea Nitrogen 13 mg/dL (8-26) Creatinine 1.1 mg/dL (0.7-1.3) Estimated GFR (Cockcroft-Gault) 69.0 Glucose Level 102 mg/dL (70-99) Calcium Level 8.5 mg/dL (8.5-10.1) Laboratory Tests Test 09/01/21 12:40 09/01/21 14:03 09/01/21 17:18 09/01/21 21:05 White Blood Count 5.7 x10^3/uL (4.0-11.0) Red Blood Count 4.15 x10^6/uL (4.30-5.70) Hemoglobin 13.8 g/dL (13.0-17.5) Hematocrit 40.5 % (39.0-53.0) Mean Corpuscular Volume 98 fL (79-100) Mean Corpuscular Hemoglobin 33 pg (25-35) Mean Corpuscular Hemoglobin Concent 34 g/dL (31-37) Red Cell Distribution Width 12.6 % (11.5-14.5) Platelet Count 181 x10^3/uL (140-400) Neutrophils (%) (Auto) 69 % (31-73) Lymphocytes (%) (Auto) 19 % (24-48) Monocytes (%) (Auto) 9 % (0-9) Eosinophils (%) (Auto) 3 % (0-3) Basophils (%) (Auto) 1 % (0-3) Neutrophils # (Auto) 3.9 x10^3/uL (1.8-7.7) Lymphocytes # (Auto) 1.1 x10^3/uL (1.0-4.8) Monocytes # (Auto) 0.5 x10^3/uL (0.0-1.1) Eosinophils # (Auto) 0.1 x10^3/uL (0.0-0.7) Basophils # (Auto) 0.1 x10^3/uL (0.0-0.2) Prothrombin Time 12.7 SEC (11.7-14.0) Prothromb Time International Ratio 1.0 (0.8-1.1) Activated Partial Thromboplast Time 26 SEC (24-38) Sodium Level 140 mmol/L (136-145) Potassium Level 4.0 mmol/L (3.5-5.1) Chloride Level 102 mmol/L (98-107) Carbon Dioxide Level 28 mmol/L (21-32) Anion Gap 10 (6-14) Blood Urea Nitrogen 14 mg/dL (8-26) Creatinine 1.1 mg/dL (0.7-1.3) Estimated GFR (Cockcroft-Gault) 69.0 BUN/Creatinine Ratio 13 (6-20) Glucose Level 132 mg/dL (70-99) Calcium Level 8.3 mg/dL (8.5-10.1) Total Bilirubin 0.3 mg/dL (0.2-1.0) Aspartate Amino Transf (AST/SGOT) 17 U/L (15-37) Alanine Aminotransferase (ALT/SGPT) 37 U/L (16-63) Alkaline Phosphatase 54 U/L (46-116) Creatine Kinase 164 U/L (39-308) Troponin I High Sensitivity 11 ng/L (4-75) 16 ng/L (4-75) 15 ng/L (4-75) PI-Mga-Z-Type Natriuretic Peptide 106 pg/mL (0-124) Total Protein 7.2 g/dL (6.4-8.2) Albumin 3.3 g/dL (3.4-5.0) Albumin/Globulin Ratio 0.8 (1.0-1.7) SARS-CoV-2 RNA (ADRIAN) Negative (Negative) SARS-CoV-2 Antigen (Rapid) Negative (NEGATIVE) Heparin Anti-Xa Act, Unfractionated 0.21 IU/mL (0.30-0.70) Test 09/01/21 23:50 09/02/21 06:20 Troponin I High Sensitivity 16 ng/L (4-75) White Blood Count 5.2 x10^3/uL (4.0-11.0) Red Blood Count 4.22 x10^6/uL (4.30-5.70) Hemoglobin 14.1 g/dL (13.0-17.5) Hematocrit 41.2 % (39.0-53.0) Mean Corpuscular Volume 98 fL (79-100) Mean Corpuscular Hemoglobin 34 pg (25-35) Mean Corpuscular Hemoglobin Concent 34 g/dL (31-37) Red Cell Distribution Width 12.8 % (11.5-14.5) Platelet Count 161 x10^3/uL (140-400) Neutrophils (%) (Auto) 56 % (31-73) Lymphocytes (%) (Auto) 30 % (24-48) Monocytes (%) (Auto) 9 % (0-9) Eosinophils (%) (Auto) 4 % (0-3) Basophils (%) (Auto) 1 % (0-3) Neutrophils # (Auto) 2.9 x10^3/uL (1.8-7.7) Lymphocytes # (Auto) 1.5 x10^3/uL (1.0-4.8) Monocytes # (Auto) 0.5 x10^3/uL (0.0-1.1) Eosinophils # (Auto) 0.2 x10^3/uL (0.0-0.7) Basophils # (Auto) 0.0 x10^3/uL (0.0-0.2) Heparin Anti-Xa Act, Unfractionated 0.20 IU/mL (0.30-0.70) Sodium Level 144 mmol/L (136-145) Potassium Level 4.5 mmol/L (3.5-5.1) Chloride Level 106 mmol/L (98-107) Carbon Dioxide Level 26 mmol/L (21-32) Anion Gap 12 (6-14) Blood Urea Nitrogen 13 mg/dL (8-26) Creatinine 1.1 mg/dL (0.7-1.3) Estimated GFR (Cockcroft-Gault) 69.0 Glucose Level 102 mg/dL (70-99) Calcium Level 8.5 mg/dL (8.5-10.1) Diagnostic Data/Imaging Laboratory Tests Test 09/01/21 12:40 09/01/21 14:03 09/01/21 17:18 09/01/21 21:05 White Blood Count 5.7 x10^3/uL Red Blood Count 4.15 x10^6/uL Hemoglobin 13.8 g/dL Hematocrit 40.5 % Mean Corpuscular Volume 98 fL Mean Corpuscular Hemoglobin 33 pg Mean Corpuscular Hemoglobin Concent 34 g/dL Red Cell Distribution Width 12.6 % Platelet Count 181 x10^3/uL Neutrophils (%) (Auto) 69 % Lymphocytes (%) (Auto) 19 % Monocytes (%) (Auto) 9 % Eosinophils (%) (Auto) 3 % Basophils (%) (Auto) 1 % Neutrophils # (Auto) 3.9 x10^3/uL Lymphocytes # (Auto) 1.1 x10^3/uL Monocytes # (Auto) 0.5 x10^3/uL Eosinophils # (Auto) 0.1 x10^3/uL Basophils # (Auto) 0.1 x10^3/uL Prothrombin Time 12.7 SEC Prothromb Time International Ratio 1.0 Activated Partial Thromboplast Time 26 SEC Sodium Level 140 mmol/L Potassium Level 4.0 mmol/L Chloride Level 102 mmol/L Carbon Dioxide Level 28 mmol/L Anion Gap 10 Blood Urea Nitrogen 14 mg/dL Creatinine 1.1 mg/dL Estimated GFR (Cockcroft-Gault) 69.0 BUN/Creatinine Ratio 13 Glucose Level 132 mg/dL Calcium Level 8.3 mg/dL Total Bilirubin 0.3 mg/dL Aspartate Amino Transf (AST/SGOT) 17 U/L Alanine Aminotransferase (ALT/SGPT) 37 U/L Alkaline Phosphatase 54 U/L Creatine Kinase 164 U/L Troponin I High Sensitivity 11 ng/L 16 ng/L 15 ng/L SO-Uhp-W-Type Natriuretic Peptide 106 pg/mL Total Protein 7.2 g/dL Albumin 3.3 g/dL Albumin/Globulin Ratio 0.8 SARS-CoV-2 RNA (ADRIAN) Negative SARS-CoV-2 Antigen (Rapid) Negative Heparin Anti-Xa Act, Unfractionated 0.21 IU/mL Test 09/01/21 23:50 09/02/21 06:20 Troponin I High Sensitivity 16 ng/L White Blood Count 5.2 x10^3/uL Red Blood Count 4.22 x10^6/uL Hemoglobin 14.1 g/dL Hematocrit 41.2 % Mean Corpuscular Volume 98 fL Mean Corpuscular Hemoglobin 34 pg Mean Corpuscular Hemoglobin Concent 34 g/dL Red Cell Distribution Width 12.8 % Platelet Count 161 x10^3/uL Neutrophils (%) (Auto) 56 % Lymphocytes (%) (Auto) 30 % Monocytes (%) (Auto) 9 % Eosinophils (%) (Auto) 4 % Basophils (%) (Auto) 1 % Neutrophils # (Auto) 2.9 x10^3/uL Lymphocytes # (Auto) 1.5 x10^3/uL Monocytes # (Auto) 0.5 x10^3/uL Eosinophils # (Auto) 0.2 x10^3/uL Basophils # (Auto) 0.0 x10^3/uL Heparin Anti-Xa Act, Unfractionated 0.20 IU/mL Sodium Level 144 mmol/L Potassium Level 4.5 mmol/L Chloride Level 106 mmol/L Carbon Dioxide Level 26 mmol/L Anion Gap 12 Blood Urea Nitrogen 13 mg/dL Creatinine 1.1 mg/dL Estimated GFR (Cockcroft-Gault) 69.0 Glucose Level 102 mg/dL Calcium Level 8.5 mg/dL Current Medications Medications (Trade) Dose Ordered Sig/Sanchez Route PRN Reason Start Time Stop Time Status Last Admin Dose Admin Iohexol (Omnipaque 350 Mg/ml) 100 ml 1X ONCE IV 09/01/21 13:30 09/01/21 13:31 DC 09/01/21 13:33 Info (CONTRAST GIVEN -- Rx MONITORING) 1 each PRN DAILY PRN MC SEE COMMENTS 09/01/21 13:30 09/03/21 13:29 Heparin Sodium (Porcine) (Heparin Sodium) 10,000 unit 1X ONCE IV 09/01/21 14:00 09/01/21 14:17 DC 09/01/21 15:16 Heparin Sodium/ Dextrose 250 ml @ 20 mls/hr CONT PRN IV PER PROTOCOL 09/01/21 14:00 09/02/21 05:25 Heparin Sodium (Porcine) (Heparin Sodium) 4,050 unit PRN Q6HRS PRN IV FOR UFH LEVEL LESS THAN 0.2 09/01/21 14:00 Heparin Sodium (Porcine) (Heparin Sodium) 2,050 unit PRN Q6HRS PRN IV FOR UFH LEVEL 0.2 - 0.29 09/01/21 14:00 09/01/21 23:39 Ondansetron HCl (Zofran) 4 mg PRN Q8HRS PRN IVP NAUSEA/VOMITING 09/01/21 17:00 09/02/21 16:59 Alprazolam (Xanax) 1 mg QHS PRN PO INSOMNIA 09/01/21 18:30 09/01/21 23:34 Losartan Potassium (Cozaar) 25 mg DAILY PO 09/02/21 09:00 Hydralazine HCl (Apresoline Inj) 10 mg PRN Q4HRS PRN IVP ELEVATED BP, SEE COMMENTS 09/01/21 18:30 Ondansetron HCl (Zofran) 4 mg PRN Q6HRS PRN IVP NAUSEA/VOMITING 09/01/21 20:00 Calcium Carbonate/ Glycine (Tums) 500 mg PRN Q3HRS PRN PO UPSET STOMACH 09/01/21 20:00 Zolpidem Tartrate (Ambien) 5 mg PRN QHS PRN PO INSOMNIA, MAY REPEAT IN 1HR 09/01/21 20:00 Info (Non-Icu Electrolyte Protocol) 1 ea PRN DAILY PRN MC SEE COMMENTS 09/01/21 20:00 Oxycodone/ Acetaminophen (Percocet 5/325) 1 tab PRN Q4HRS PRN PO MILD PAIN, 1ST CHOICE 09/01/21 20:00 Oxycodone/ Acetaminophen (Percocet 5/325) 2 tab PRN Q4HRS PRN PO MODERATE PAIN, SEVERE PAIN 09/01/21 20:00 Acetaminophen (Tylenol) 650 mg PRN Q6HRS PRN PO Headaches, Temp > 101.5F 09/01/21 20:00 Senna/Docusate Sodium (Senna Plus) 1 tab BID PO 09/01/21 21:00 09/01/21 20:32 Assessment/Plan Acute, extensive LLE DVT with significant swelling and pain. Associated asymptomatic PE with relatively mild clot burden. Discussed options with patient including risks and benefits of thrombectomy to hasten recovery, and possibly lessen chance of post thrombotic syndrome, given relatively young age and extensive LLE clot burden. Also discussed options of anticoagulation alone, and thrombolysis. Patient elects for catheter thrombectomy. Will try to arrange for this afternoon. Problem Qualifiers (1) Left leg DVT: Affected thrombotic vein of extremity: femoral Chronicity: acute Qualified Codes: I82.412 - Acute embolism and thrombosis of left femoral vein AIDAN ROACH MD Sep 02, 2021 09:21
[2021-09-02] MEDS: HEPARIN for IV BOLUS 10,000 UNIT/10 ML VIAL. IV PRN (10:01)
--- NOTE | 2021-09-02 10:15 | PDOC2 ---
CONSULT Date of Service Date of Service DATE: 09/02/21 TIME: 09:58 Reason for Consult Reason for Consult: Left lower extremity deep vein thrombosis Referring Physician Referring Physician: ER physician Identification/Chief Complaint Chief Complaint Left leg swelling Source Source: Chart review, Patient History of Present Illness Reason for Visit: This is a 56-year-old male in general good health who presented to the emergency room with severe left lower extremity swelling. Patient states that the swelling has been present for approximately 2 weeks. He denies pain in his left leg, and states the swelling has improved since admission. He denies any past history of leg swelling, deep vein thrombosis or hypercoagulability. Patient states that he often sits for hours in his vehicle while on the job. He denies wearing any compression hose. He denies any lower extremity claudication. He denies any family history of deep vein thrombosis or clotting disorder. He does have a history of hypertension. Past Medical History Cardiovascular: HTN Pulmonary: No pertinent hx GI: No pertinent hx Heme/Onc: No pertinent hx Hepatobiliary: No pertinent hx Psych: No pertinent hx Rheumatologic: No pertinent hx Infectious disease: No pertinent hx ENT: No pertinent hx Renal/: No pertinent hx Endocrine: No pertinent hx Dermatology: No pertinent hx Past Surgical History Past Surgical History: No pertinent history Family History Family History: No Significant Social History No ALCOHOL: occassional Drugs: None Current Problem List Problem List Problems Medical Problems: (1) Bilateral pulmonary embolism Status: Acute (2) Left leg DVT Status: Acute Current Medications Current Medications Current Medications Iohexol (Omnipaque 350 Mg/ml) 100 ml 1X ONCE IV Last administered on 09/01/21at 13:33; Start 09/01/21 at 13:30; Stop 09/01/21 at 13:31; Status DC Info (CONTRAST GIVEN -- Rx MONITORING) 1 each PRN DAILY PRN MC SEE COMMENTS; Start 09/01/21 at 13:30; Stop 09/03/21 at 13:29 Heparin Sodium (Porcine) (Heparin Sodium) 10,000 unit 1X ONCE IV Last administered on 09/01/21at 15:16; Start 09/01/21 at 14:00; Stop 09/01/21 at 14:17; Status DC Heparin Sodium/ Dextrose 250 ml @ 20 mls/hr CONT PRN IV PER PROTOCOL Last administered on 09/02/21at 05:25; Start 09/01/21 at 14:00 Heparin Sodium (Porcine) (Heparin Sodium) 4,050 unit PRN Q6HRS PRN IV FOR UFH LEVEL LESS THAN 0.2; Start 09/01/21 at 14:00 Heparin Sodium (Porcine) (Heparin Sodium) 2,050 unit PRN Q6HRS PRN IV FOR UFH LEVEL 0.2 - 0.29 Last administered on 09/01/21at 23:39; Start 09/01/21 at 14:00 Ondansetron HCl (Zofran) 4 mg PRN Q8HRS PRN IVP NAUSEA/VOMITING; Start 09/01/21 at 17:00; Stop 09/02/21 at 16:59 Alprazolam (Xanax) 1 mg QHS PRN PO INSOMNIA Last administered on 09/01/21at 23:34; Start 09/01/21 at 18:30 Losartan Potassium (Cozaar) 25 mg DAILY PO ; Start 09/02/21 at 09:00 Hydralazine HCl (Apresoline Inj) 10 mg PRN Q4HRS PRN IVP ELEVATED BP, SEE COMMENTS; Start 09/01/21 at 18:30 Ondansetron HCl (Zofran) 4 mg PRN Q6HRS PRN IVP NAUSEA/VOMITING; Start 09/01/21 at 20:00 Calcium Carbonate/ Glycine (Tums) 500 mg PRN Q3HRS PRN PO UPSET STOMACH; Start 09/01/21 at 20:00 Zolpidem Tartrate (Ambien) 5 mg PRN QHS PRN PO INSOMNIA, MAY REPEAT IN 1HR; Start 09/01/21 at 20:00 Info (Non-Icu Electrolyte Protocol) 1 ea PRN DAILY PRN MC SEE COMMENTS; Start 09/01/21 at 20:00 Oxycodone/ Acetaminophen (Percocet 5/325) 1 tab PRN Q4HRS PRN PO MILD PAIN, 1ST CHOICE; Start 09/01/21 at 20:00 Oxycodone/ Acetaminophen (Percocet 5/325) 2 tab PRN Q4HRS PRN PO MODERATE PAIN, SEVERE PAIN; Start 09/01/21 at 20:00 Acetaminophen (Tylenol) 650 mg PRN Q6HRS PRN PO Headaches, Temp > 101.5F; Start 09/01/21 at 20:00 Senna/Docusate Sodium (Senna Plus) 1 tab BID PO Last administered on 09/01/21at 20:32; Start 09/01/21 at 21:00 Active Scripts Active Reported Alprazolam 1 Mg Tablet 1 Tab PO QHS PRN Losartan Potassium 50 Mg Tablet 25 Mg PO DAILY Benicar (Olmesartan Medoxomil) 5 Mg Tablet 5 Mg PO DAILY Allergies Allergies: Coded Allergies: Penicillins (Verified Allergy, Intermediate, rash, 06/09/19) ROS Review of System Constitutional: Denies fever or chills Eyes: Denies any visual disturbances HENT: Denies nasal congestion or sore throat Respiratory: Denies cough or shortness of breath Cardiovascular: Denies any palpitations or chest pain GI: Denies abdominal pain, nausea, vomiting, bloody stools or diarrhea : Denies dysuria or hematuria Musculoskeletal: As per HPI Integument: As per HPI Neurologic: No gross deficits Endocrine: Denies excessive thirst or heat/cold intolerance. Physical Exam Physical Exam General: Alert and oriented X3 HEENT: Atraumatic, Pupils equal, round. Mucous membranes moist. Cardiac: Heart rate regular. Neck: No lymphadenopathy Lungs: Non-labored respirations. He is on RA. Abdomen: Obese, soft, nontender, nondistended, no palpable masses. Extremities: 2+ palpable bilateral radial and bilateral dorsalis pedis pulses Musculoskeletal: Gait steady. Moving all extremities. Skin: Warm, dry and intact. [place], capillary refill < 3 secs. Moderate swelling left thigh,calf and foot. Neurological: Motor and sensation intact. Psychiatry: No depression or anxiety Vitals VITALS Vital Signs Date Time Temp Pulse Resp B/P (MAP) Pulse Ox O2 Delivery O2 Flow Rate FiO2 09/02/21 07:00 97.5 89 18 145/74 (97) 94 Room Air 97.5 Labs Labs Laboratory Tests Test 09/01/21 12:40 09/01/21 14:03 09/01/21 17:18 09/01/21 21:05 White Blood Count 5.7 x10^3/uL (4.0-11.0) Red Blood Count 4.15 x10^6/uL (4.30-5.70) Hemoglobin 13.8 g/dL (13.0-17.5) Hematocrit 40.5 % (39.0-53.0) Mean Corpuscular Volume 98 fL (79-100) Mean Corpuscular Hemoglobin 33 pg (25-35) Mean Corpuscular Hemoglobin Concent 34 g/dL (31-37) Red Cell Distribution Width 12.6 % (11.5-14.5) Platelet Count 181 x10^3/uL (140-400) Neutrophils (%) (Auto) 69 % (31-73) Lymphocytes (%) (Auto) 19 % (24-48) Monocytes (%) (Auto) 9 % (0-9) Eosinophils (%) (Auto) 3 % (0-3) Basophils (%) (Auto) 1 % (0-3) Neutrophils # (Auto) 3.9 x10^3/uL (1.8-7.7) Lymphocytes # (Auto) 1.1 x10^3/uL (1.0-4.8) Monocytes # (Auto) 0.5 x10^3/uL (0.0-1.1) Eosinophils # (Auto) 0.1 x10^3/uL (0.0-0.7) Basophils # (Auto) 0.1 x10^3/uL (0.0-0.2) Prothrombin Time 12.7 SEC (11.7-14.0) Prothromb Time International Ratio 1.0 (0.8-1.1) Activated Partial Thromboplast Time 26 SEC (24-38) Sodium Level 140 mmol/L (136-145) Potassium Level 4.0 mmol/L (3.5-5.1) Chloride Level 102 mmol/L (98-107) Carbon Dioxide Level 28 mmol/L (21-32) Anion Gap 10 (6-14) Blood Urea Nitrogen 14 mg/dL (8-26) Creatinine 1.1 mg/dL (0.7-1.3) Estimated GFR (Cockcroft-Gault) 69.0 BUN/Creatinine Ratio 13 (6-20) Glucose Level 132 mg/dL (70-99) Calcium Level 8.3 mg/dL (8.5-10.1) Total Bilirubin 0.3 mg/dL (0.2-1.0) Aspartate Amino Transf (AST/SGOT) 17 U/L (15-37) Alanine Aminotransferase (ALT/SGPT) 37 U/L (16-63) Alkaline Phosphatase 54 U/L (46-116) Creatine Kinase 164 U/L (39-308) Troponin I High Sensitivity 11 ng/L (4-75) 16 ng/L (4-75) 15 ng/L (4-75) NA-Trl-H-Type Natriuretic Peptide 106 pg/mL (0-124) Total Protein 7.2 g/dL (6.4-8.2) Albumin 3.3 g/dL (3.4-5.0) Albumin/Globulin Ratio 0.8 (1.0-1.7) SARS-CoV-2 RNA (ADRIAN) Negative (Negative) SARS-CoV-2 Antigen (Rapid) Negative (NEGATIVE) Heparin Anti-Xa Act, Unfractionated 0.21 IU/mL (0.30-0.70) Test 09/01/21 23:50 09/02/21 06:20 Troponin I High Sensitivity 16 ng/L (4-75) White Blood Count 5.2 x10^3/uL (4.0-11.0) Red Blood Count 4.22 x10^6/uL (4.30-5.70) Hemoglobin 14.1 g/dL (13.0-17.5) Hematocrit 41.2 % (39.0-53.0) Mean Corpuscular Volume 98 fL (79-100) Mean Corpuscular Hemoglobin 34 pg (25-35) Mean Corpuscular Hemoglobin Concent 34 g/dL (31-37) Red Cell Distribution Width 12.8 % (11.5-14.5) Platelet Count 161 x10^3/uL (140-400) Neutrophils (%) (Auto) 56 % (31-73) Lymphocytes (%) (Auto) 30 % (24-48) Monocytes (%) (Auto) 9 % (0-9) Eosinophils (%) (Auto) 4 % (0-3) Basophils (%) (Auto) 1 % (0-3) Neutrophils # (Auto) 2.9 x10^3/uL (1.8-7.7) Lymphocytes # (Auto) 1.5 x10^3/uL (1.0-4.8) Monocytes # (Auto) 0.5 x10^3/uL (0.0-1.1) Eosinophils # (Auto) 0.2 x10^3/uL (0.0-0.7) Basophils # (Auto) 0.0 x10^3/uL (0.0-0.2) Heparin Anti-Xa Act, Unfractionated 0.20 IU/mL (0.30-0.70) Sodium Level 144 mmol/L (136-145) Potassium Level 4.5 mmol/L (3.5-5.1) Chloride Level 106 mmol/L (98-107) Carbon Dioxide Level 26 mmol/L (21-32) Anion Gap 12 (6-14) Blood Urea Nitrogen 13 mg/dL (8-26) Creatinine 1.1 mg/dL (0.7-1.3) Estimated GFR (Cockcroft-Gault) 69.0 Glucose Level 102 mg/dL (70-99) Calcium Level 8.5 mg/dL (8.5-10.1) Laboratory Tests Test 09/01/21 12:40 09/01/21 14:03 09/01/21 17:18 09/01/21 21:05 White Blood Count 5.7 x10^3/uL (4.0-11.0) Red Blood Count 4.15 x10^6/uL (4.30-5.70) Hemoglobin 13.8 g/dL (13.0-17.5) Hematocrit 40.5 % (39.0-53.0) Mean Corpuscular Volume 98 fL (79-100) Mean Corpuscular Hemoglobin 33 pg (25-35) Mean Corpuscular Hemoglobin Concent 34 g/dL (31-37) Red Cell Distribution Width 12.6 % (11.5-14.5) Platelet Count 181 x10^3/uL (140-400) Neutrophils (%) (Auto) 69 % (31-73) Lymphocytes (%) (Auto) 19 % (24-48) Monocytes (%) (Auto) 9 % (0-9) Eosinophils (%) (Auto) 3 % (0-3) Basophils (%) (Auto) 1 % (0-3) Neutrophils # (Auto) 3.9 x10^3/uL (1.8-7.7) Lymphocytes # (Auto) 1.1 x10^3/uL (1.0-4.8) Monocytes # (Auto) 0.5 x10^3/uL (0.0-1.1) Eosinophils # (Auto) 0.1 x10^3/uL (0.0-0.7) Basophils # (Auto) 0.1 x10^3/uL (0.0-0.2) Prothrombin Time 12.7 SEC (11.7-14.0) Prothromb Time International Ratio 1.0 (0.8-1.1) Activated Partial Thromboplast Time 26 SEC (24-38) Sodium Level 140 mmol/L (136-145) Potassium Level 4.0 mmol/L (3.5-5.1) Chloride Level 102 mmol/L (98-107) Carbon Dioxide Level 28 mmol/L (21-32) Anion Gap 10 (6-14) Blood Urea Nitrogen 14 mg/dL (8-26) Creatinine 1.1 mg/dL (0.7-1.3) Estimated GFR (Cockcroft-Gault) 69.0 BUN/Creatinine Ratio 13 (6-20) Glucose Level 132 mg/dL (70-99) Calcium Level 8.3 mg/dL (8.5-10.1) Total Bilirubin 0.3 mg/dL (0.2-1.0) Aspartate Amino Transf (AST/SGOT) 17 U/L (15-37) Alanine Aminotransferase (ALT/SGPT) 37 U/L (16-63) Alkaline Phosphatase 54 U/L (46-116) Creatine Kinase 164 U/L (39-308) Troponin I High Sensitivity 11 ng/L (4-75) 16 ng/L (4-75) 15 ng/L (4-75) HP-Gqf-M-Type Natriuretic Peptide 106 pg/mL (0-124) Total Protein 7.2 g/dL (6.4-8.2) Albumin 3.3 g/dL (3.4-5.0) Albumin/Globulin Ratio 0.8 (1.0-1.7) SARS-CoV-2 RNA (ADRIAN) Negative (Negative) SARS-CoV-2 Antigen (Rapid) Negative (NEGATIVE) Heparin Anti-Xa Act, Unfractionated 0.21 IU/mL (0.30-0.70) Test 09/01/21 23:50 09/02/21 06:20 Troponin I High Sensitivity 16 ng/L (4-75) White Blood Count 5.2 x10^3/uL (4.0-11.0) Red Blood Count 4.22 x10^6/uL (4.30-5.70) Hemoglobin 14.1 g/dL (13.0-17.5) Hematocrit 41.2 % (39.0-53.0) Mean Corpuscular Volume 98 fL (79-100) Mean Corpuscular Hemoglobin 34 pg (25-35) Mean Corpuscular Hemoglobin Concent 34 g/dL (31-37) Red Cell Distribution Width 12.8 % (11.5-14.5) Platelet Count 161 x10^3/uL (140-400) Neutrophils (%) (Auto) 56 % (31-73) Lymphocytes (%) (Auto) 30 % (24-48) Monocytes (%) (Auto) 9 % (0-9) Eosinophils (%) (Auto) 4 % (0-3) Basophils (%) (Auto) 1 % (0-3) Neutrophils # (Auto) 2.9 x10^3/uL (1.8-7.7) Lymphocytes # (Auto) 1.5 x10^3/uL (1.0-4.8) Monocytes # (Auto) 0.5 x10^3/uL (0.0-1.1) Eosinophils # (Auto) 0.2 x10^3/uL (0.0-0.7) Basophils # (Auto) 0.0 x10^3/uL (0.0-0.2) Heparin Anti-Xa Act, Unfractionated 0.20 IU/mL (0.30-0.70) Sodium Level 144 mmol/L (136-145) Potassium Level 4.5 mmol/L (3.5-5.1) Chloride Level 106 mmol/L (98-107) Carbon Dioxide Level 26 mmol/L (21-32) Anion Gap 12 (6-14) Blood Urea Nitrogen 13 mg/dL (8-26) Creatinine 1.1 mg/dL (0.7-1.3) Estimated GFR (Cockcroft-Gault) 69.0 Glucose Level 102 mg/dL (70-99) Calcium Level 8.5 mg/dL (8.5-10.1) Images Images Venous US lower extremity Impression: 1. Extensive deep vein thrombosis throughout the left lower extremity. Chest CTA IMPRESSION: 1. Multiple filling defects identified in the distal right and left main pulmonary arteries extending into the left upper lobe, left lower lobe, right upper lobe and right lower lobe pulmonary arterial branches likely multiple pulmonary emboli. 2. Coronary artery calcifications. 3. Hepatic steatosis. Assessment/Plan Assessment/Plan 56 year old male with extensive left lower extremity deep vein thrombosis involving the common femoral, deep femoral, superficial femoral, popliteal, and calf veins. He has had some improvement since admission. Patient is on heparin infusion. He is scheduled with IR for thrombectomy today. Hypercoaguable work up ordered. Recommend leg elevation and compression therapy. He will need usp anticoagulation of at least 3-6 months. He will need follow up US in 3 months. In addition patient has pulmonary embolism without respiratory compromise. Continue to monitor. PABLO WILKERSON APRN Sep 02, 2021 10:15
--- NOTE | 2021-09-02 11:47 | NUR ---
SW following. Discussed with RN, pt from home, room air, regular diet, COVID-19 negative. Pt on a heparin drip. IR and Vascular following. RN advised no SW needs at this time. SW will continue to follow.
[2021-09-02] MEDS ORDERED: LIDOCAINE WITH 8.4% SOD BICARB 3 ML DISP.SYRIN. ONE (12:51)
[2021-09-02] MEDS ORDERED: IODIXANOL 320 MG/ML 100 ML VIAL. ONE ×2 (12:51→14:31)
[2021-09-02] MEDS ORDERED: MIDAZOLAM HCL/PF 5 MG/5 ML VIAL. ONE (13:01)
[2021-09-02] MEDS ORDERED: fentaNYL PF VIAL 250 MCG/5 ML VIAL ONE (13:01)
[2021-09-02] MEDS ORDERED: fentaNYL PF VIAL 250 MCG/5 ML VIAL IV ONE (13:15)
[2021-09-02] MEDS ORDERED: LIDOCAINE WITH 8.4% SOD BICARB 3 ML DISP.SYRIN. IJ ONE (13:15)
[2021-09-02] MEDS ORDERED: MIDAZOLAM HCL/PF 5 MG/5 ML VIAL. IV ONE (13:15)
[2021-09-02] MEDS ORDERED: HEPARIN for IV BOLUS 10,000 UNIT/10 ML VIAL. ONE (13:30)
[2021-09-02] MEDS ORDERED: HEPARIN 25,000UTS/250ML PREMIX 250 ML IV ONE (13:43)
[2021-09-02] MEDS ORDERED: HEPARIN for IV BOLUS 10,000 UNIT/10 ML VIAL. IV ONE (13:45)
[2021-09-02] MEDS ORDERED: IODIXANOL 320 MG/ML 100 ML VIAL. IART ONE (15:00)
--- NOTE | 2021-09-02 15:10 | NUR ---
PATIENT RETURNED TO THE UNIT FROM THROMBOLYSIS PROCEDURE PER BED, AT THE BEDSIDE, POPLITEAL AREA OF LEFT LEG WITH CLEAR DRESSING AND GAUZE BENEATH, PATIENTS VITALS AT THIS TIME ARE FOLLOWS; 98.1, 19, 72,150/87, NO C/O [PAIN WILL ADMINISTER AM MEDS AND CHECK ORDERS.
[2021-09-02] MEDS: SENNOSIDES/DOCUSATE 8.6/50MG TABLET. PO SCH ×2 (15:31→21:07)
[2021-09-02] MEDS: LOSARTAN POTASSIUM 50 MG TABLET. PO SCH (15:32)
[2021-09-02] MEDS: oxyCODONE/APAP 5/325 1 TAB TABLET PO PRN ×3 (16:29→22:23)
--- NOTE | 2021-09-02 16:51 | PDOC ---
Provider Note Date of Service: DATE: 09/02/21 TIME: 16:49 Provider Note IR NOTE LLE thrombectomy today, with clot removed from popliteal vein to saphenofemoral junction. No complications Minimal blood loss. Stitch removed at 430 pm and light pressure dressing applied. No evidence of bleeding or hematoma. DOAC therapy initiated post conversation with Dr Lam. Justifications for Admission Other Justification AIDAN ROACH MD Sep 02, 2021 16:51
--- NOTE | 2021-09-02 18:06 | PDOC ---
[facility] PROGRESS NOTE Date of Service DOS: DATE: 09/02/21 TIME: 18:03 Chief Complaint Chief Complaint LLE DVT Pulmonary emboli HTN ALIVIA on CPAP History of Present Illness History of Present Illness Mr Mistry is a 56-year-old male w/ PMHx ALIVIA on CPAP who presented to the emergency room with severe left lower extremity swelling. Patient states that the swelling has been present for approximately 2 weeks. Seen by his PCP about this this morning and was sent to the emergency room due to concern for DVT. In the ER lower extremity duplexes showed extensive clot burden of the left lower extremity. Chest CTA showed bilateral pulmonary emboli. 09/02: To IR for thrombectomy. Discussed with IR will start on 10 mg Eliquis twice daily. Patient's pain or shortness of breath improved. Discussed with him and bedside Vitals/I&O Vitals/I&O: Vital Signs Date Time Temp Pulse Resp B/P (MAP) Pulse Ox O2 Delivery O2 Flow Rate FiO2 09/02/21 16:29 19 93 Room Air 09/02/21 15:32 72 150/87 09/02/21 15:00 97.7 97.7 I & O 09/01/21 09/01/21 09/02/21 15:00 23:00 07:00 Intake Total 400 ml Output Total 875 ml Balance -875 ml 400 ml Physical Exam General: Alert, Oriented X3, Cooperative, No acute distress Heart: Regular rate, Normal S1, Normal S2, No murmurs Lungs: Clear Abdomen: Normal bowel sounds, Soft, No tenderness, No masses Extremities: No clubbing, No cyanosis Skin: No rashes, No breakdown Labs Labs: Laboratory Tests Test 09/01/21 21:05 09/01/21 23:50 09/02/21 06:20 09/02/21 15:55 Heparin Anti-Xa Act, Unfractionated 0.21 IU/mL (0.30-0.70) 0.20 IU/mL (0.30-0.70) 0.55 IU/mL (0.30-0.70) Troponin I High Sensitivity 15 ng/L (4-75) 16 ng/L (4-75) White Blood Count 5.2 x10^3/uL (4.0-11.0) Red Blood Count 4.22 x10^6/uL (4.30-5.70) Hemoglobin 14.1 g/dL (13.0-17.5) Hematocrit 41.2 % (39.0-53.0) Mean Corpuscular Volume 98 fL (79-100) Mean Corpuscular Hemoglobin 34 pg (25-35) Mean Corpuscular Hemoglobin Concent 34 g/dL (31-37) Red Cell Distribution Width 12.8 % (11.5-14.5) Platelet Count 161 x10^3/uL (140-400) Neutrophils (%) (Auto) 56 % (31-73) Lymphocytes (%) (Auto) 30 % (24-48) Monocytes (%) (Auto) 9 % (0-9) Eosinophils (%) (Auto) 4 % (0-3) Basophils (%) (Auto) 1 % (0-3) Neutrophils # (Auto) 2.9 x10^3/uL (1.8-7.7) Lymphocytes # (Auto) 1.5 x10^3/uL (1.0-4.8) Monocytes # (Auto) 0.5 x10^3/uL (0.0-1.1) Eosinophils # (Auto) 0.2 x10^3/uL (0.0-0.7) Basophils # (Auto) 0.0 x10^3/uL (0.0-0.2) Sodium Level 144 mmol/L (136-145) Potassium Level 4.5 mmol/L (3.5-5.1) Chloride Level 106 mmol/L (98-107) Carbon Dioxide Level 26 mmol/L (21-32) Anion Gap 12 (6-14) Blood Urea Nitrogen 13 mg/dL (8-26) Creatinine 1.1 mg/dL (0.7-1.3) Estimated GFR (Cockcroft-Gault) 69.0 Glucose Level 102 mg/dL (70-99) Calcium Level 8.5 mg/dL (8.5-10.1) Assessment and Plan Assessmemt and Plan Problems Medical Problems: (1) Bilateral pulmonary embolism Status: Acute (2) Left leg DVT Status: Acute Comment Review of Relevant I have reviewed the following items selin (where applicable) has been applied. Medications: Current Medications Medications (Trade) Dose Ordered Sig/Sanchez Route PRN Reason Start Time Stop Time Status Last Admin Dose Admin Alprazolam (Xanax) 1 mg QHS PRN PO INSOMNIA 09/01/21 18:30 09/01/21 23:34 Losartan Potassium (Cozaar) 25 mg DAILY PO 09/02/21 09:00 09/02/21 15:32 Oxycodone/ Acetaminophen (Percocet 5/325) 1 tab PRN Q4HRS PRN PO MILD PAIN, 1ST CHOICE 09/01/21 20:00 09/02/21 16:29 Senna/Docusate Sodium (Senna Plus) 1 tab BID PO 09/01/21 21:00 09/02/21 15:31 Heparin Sodium/ Sodium Chloride (HEPARIN for ARTERIAL LINE FLUSH) 1,000 unit 1X ONCE IART 09/02/21 13:15 09/02/21 13:21 DC 09/02/21 13:15 Heparin Sodium/ Sodium Chloride (HEPARIN for ARTERIAL LINE FLUSH) 1,000 unit 1X ONCE IART 09/02/21 13:15 09/02/21 13:21 DC 09/02/21 13:15 Lidocaine HCl (Buffered Lidocaine 1%) 3 ml 1X ONCE IJ 09/02/21 13:15 09/02/21 13:21 DC 09/02/21 13:29 Midazolam HCl (Versed) 5 mg 1X ONCE IV 09/02/21 13:15 09/02/21 13:21 DC 09/02/21 13:23 Fentanyl Citrate (Fentanyl 5ml Vial) 250 mcg 1X ONCE IV 09/02/21 13:15 09/02/21 13:21 DC 09/02/21 13:23 Heparin Sodium (Porcine) (Heparin Sodium) 3,000 unit 1X ONCE IV 09/02/21 13:45 09/02/21 13:46 DC 09/02/21 13:45 Iodixanol (Visipaque 320) 100 ml 1X ONCE IART 09/02/21 15:00 09/02/21 15:01 DC 09/02/21 14:55 Justifications for Admission Other Justification PINEDA REDMOND MD Sep 02, 2021 18:06
--- NOTE | 2021-09-02 21:00 | NUR ---
DR. REDMOND PAGED REGARDING CLARIFICATION OF ORDER FOR ELIQUIS. PATIENT STATED THAT DR. REDMOND STATED HEPARIN DRIP WOULD STOP WHEN HE TOOK ELIQUIS.
--- NOTE | 2021-09-02 21:02 | NUR ---
DR. REDMOND RETURNED CALL ORDER RECEIVED.
[2021-09-02] MEDS: APIXABAN 5 MG TABLET. PO SCH (21:07)
--- NOTE | 2021-09-02 21:07 | NUR ---
ELIQUIS GIVEN PO PER ORDER.
--- NOTE | 2021-09-02 22:07 | NUR ---
HEPARIN DRIP STOPPED PER DR. REDMOND'S ORDER.
[2021-09-03 03:00] VITALS: BP 143/74
[2021-09-03 05:13] LABS: HEMOGLOBIN A1C 6.2 % (4.8-5.6)
--- NOTE | 2021-09-03 06:32 | PDOC ---
[facility] PROGRESS NOTE Date of Service DOS: DATE: 09/03/21 TIME: 06:32 Chief Complaint Chief Complaint LLE DVT Pulmonary emboli - eliquis BID HTN ALIVIA on CPAP Prediabetes - A1c 6.2. metformin therapy 500mg BID recommended Morbid obesity - on phentermine outpatient. Advised not a jail med Male hypogonadism - on testosterone therapy. Recommend consideration of alternatives given his thromboembolic disease History of Present Illness History of Present Illness Mr Mistry is a 56-year-old male w/ PMHx LAIVIA on CPAP who presented to the emergency room with severe left lower extremity swelling. Patient states that the swelling has been present for approximately 2 weeks. Seen by his PCP about this this morning and was sent to the emergency room due to concern for DVT. In the ER lower extremity duplexes showed extensive clot burden of the left lower extremity. Chest CTA showed bilateral pulmonary emboli. 09/02: To IR for thrombectomy. Discussed with IR will start on 10 mg Eliquis twice daily. Patient's pain or shortness of breath improved. Discussed with him and bedside 09/03: Pain improved somewhat. Transition to Eliquis counseled on importance of compliance with this and counseled on new diagnosis of prediabetes with A1c 6.2 he will start Metformin therapy. Counseled consideration of changing therapy for male hypogonadism given testosterone therapy does increase the risk of thromboses Vitals/I&O Vitals/I&O: Vital Signs Date Time Temp Pulse Resp B/P (MAP) Pulse Ox O2 Delivery O2 Flow Rate FiO2 09/03/21 03:00 97.7 80 20 143/74 (97) 93 Room Air 97.7 I & O 09/02/21 09/02/21 09/03/21 15:00 23:00 07:00 Intake Total 0 ml 100 ml 200 ml Balance 0 ml 100 ml 200 ml Physical Exam General: Alert, Oriented X3, Cooperative, No acute distress Heart: Regular rate, Normal S1, Normal S2, No murmurs Lungs: Clear Abdomen: Normal bowel sounds, Soft, No tenderness, No masses Extremities: No clubbing, No cyanosis Skin: No rashes, No breakdown Labs Labs: Laboratory Tests Test 09/02/21 15:55 Heparin Anti-Xa Act, Unfractionated 0.55 IU/mL (0.30-0.70) Assessment and Plan Assessmemt and Plan Problems Medical Problems: (1) Bilateral pulmonary embolism Status: Acute (2) Left leg DVT Status: Acute Comment Review of Relevant I have reviewed the following items selin (where applicable) has been applied. Medications: Current Medications Medications (Trade) Dose Ordered Sig/Sanchez Route PRN Reason Start Time Stop Time Status Last Admin Dose Admin Losartan Potassium (Cozaar) 25 mg DAILY PO 09/02/21 09:00 09/02/21 15:32 Heparin Sodium/ Sodium Chloride (HEPARIN for ARTERIAL LINE FLUSH) 1,000 unit 1X ONCE IART 09/02/21 13:15 09/02/21 13:21 DC 09/02/21 13:15 Heparin Sodium/ Sodium Chloride (HEPARIN for ARTERIAL LINE FLUSH) 1,000 unit 1X ONCE IART 09/02/21 13:15 09/02/21 13:21 DC 09/02/21 13:15 Lidocaine HCl (Buffered Lidocaine 1%) 3 ml 1X ONCE IJ 09/02/21 13:15 09/02/21 13:21 DC 09/02/21 13:29 Midazolam HCl (Versed) 5 mg 1X ONCE IV 09/02/21 13:15 09/02/21 13:21 DC 09/02/21 13:23 Fentanyl Citrate (Fentanyl 5ml Vial) 250 mcg 1X ONCE IV 09/02/21 13:15 09/02/21 13:21 DC 09/02/21 13:23 Heparin Sodium (Porcine) (Heparin Sodium) 3,000 unit 1X ONCE IV 09/02/21 13:45 09/02/21 13:46 DC 09/02/21 13:45 Iodixanol (Visipaque 320) 100 ml 1X ONCE IART 09/02/21 15:00 09/02/21 15:01 DC 09/02/21 14:55 Apixaban (Eliquis) 10 mg BID PO 09/02/21 21:00 09/09/21 09:01 09/02/21 21:07 Justifications for Admission Other Justification PINEDA REDMOND MD Sep 03, 2021 06:32
[2021-09-03] MEDS ORDERED: APIX5TAB PO (06:35)
[2021-09-03] MEDS ORDERED: METF500T16 PO (06:35)
[2021-09-03] MEDS: oxyCODONE/APAP 5/325 1 TAB TABLET PO PRN (07:39)
[2021-09-03] MEDS ORDERED: OXYC1TAB15 PO (07:40)
[2021-09-03 07:52] LABS: HEMATOCRIT 41.6 % (39.0-53.0); HEMOGLOBIN 14.2 g/dL (13.0-17.5); RED BLOOD COUNT 4.22 x10^6/uL (4.30-5.70); RED CELL DISTRIBUTION WIDTH 12.7 % (11.5-14.5); WHITE BLOOD COUNT 4.4 x10^3/uL (4.0-11.0)
[2021-09-03 07:55] VITALS: BP 145/79
[2021-09-03] MEDS: SENNOSIDES/DOCUSATE 8.6/50MG TABLET. PO SCH (09:09)
[2021-09-03] MEDS: APIXABAN 5 MG TABLET. PO SCH (09:09)
[2021-09-03] MEDS: LOSARTAN POTASSIUM 50 MG TABLET. PO SCH (09:10)
[2021-09-03 10:00] VITALS: BP 150/74
--- NOTE | 2021-09-03 10:51 | RAD ---
09/02/2021 1. Left lower extremity venography 2. Inferior venacavogram 3. Mechanical thrombectomy with extirpation of matter using Inari Clottriever Device Indication: 56-year-old male with left lower extremity extensive DVT from saphenofemoral junction thr ough the popliteal vein, with significant swelling, and pain. Consent: The procedure was explained in its entirety to the patient or the patients designated repres entative by a member of the treatment team, including a discussion of the risks, benefits and commonl y accepted alternatives to the procedure, as well as the expected consequences of no therapy whatsoev er. Discussion of the risks included, but was not limited to, those that are most frequent and thos e that are rare but possibly severe or life-threatening, as well as the possibility of unforeseen com plications. The left popliteal fossa was prepped and draped using maximum sterile barrier technique. Ultrasound evaluation demonstrates a thrombosed left popliteal vein. The vein was accessed using dire ct ultrasound guidance and micropuncture technique. Reference ultrasound images were saved in the [employer] record. A 5 Kisw[place]ili vascular sheath was placed. A venogram of the left lower extremity was performed demonstra ting extensive thrombus throughout the left superficial femoral vein extending to the level of the sa phenofemoral junction. The left external and common iliac veins are patent. Catheter was advanced int o the IVC. Venograms demonstrated the IVC to be patent. Next the clot favors device was deployed in an several passes. Repeat venography demonstrates essenti ally near complete removal of, and superficial femoral venous clot. No significant underlying stenosi s was identified. There is no evidence of May Thurner syndrome. No other focal abnormalities were see n. The sheath was removed. A pursestring suture was placed and hemostasis was achieved. The patient w as transferred back to his room in stable condition. Total fluoroscopy time:13.3 min Dose area product: 233 Gycm2 Sedation: The procedure was performed under conscious sedation including continuous cardiopulmonary m onitoring via a dedicated sedation nurse. [id number] sedation time:97 IMPRESSION: Extensive left lower extremity deep venous thrombosis successfully treated with mechanica l thrombectomy as described Electronically signed by: Raz Sorenson MD (09/03/2021 10:48 AM) [id number]
--- NOTE | 2021-09-03 11:25 | NUR ---
pt was discharged home with self care, scripts for Metformin, Apixaban and hydrocodone were sent to his pharm. gave pt script for knee high compression hose to be from [facility]...was wheeled down to the ED exit to be picked up by spouse. Maurisio Reyes RN
--- NOTE | 2021-09-03 12:23 | NUR ---
SW following. Discussed with RN, discharge order for home with self care. RN advised no SW needs.
[2021-09-04 06:37] LABS: ANTITHROMBIN III SEE SEPARATE REPORT; CARDIOLIPIN ANTIBODIES SEE SEPARATE REPORT; LUPUS ANTICOAGULANT SEE SEPARATE REPORT; PROTEIN C ACTIVITY SEE SEPARATE REPORT
[2021-09-04 06:38] LABS: PROTEIN S ACTIVITY SEE SEPARATE REPORT
== END 2021-09-03 11:31 | disposition home or self-care (01) | DRG 270 ==
LOC: ER 11:49 → 5 SOUTH 14:09 → OBSVTOIN 19:54
PROVIDERS: ADMIT Student in an Organized Health Care Education/Training Program; ATTEND Student in an Organized Health Care Education/Training Program
PROC: 04CL3ZZ Extirpation of Matter from Left Femoral Artery, Percutaneous Approach (ICD-10-PCS; principal; 2021-09-03)
PROC: B5191ZZ Fluoroscopy of Inferior Vena Cava using Low Osmolar Contrast (ICD-10-PCS; 2021-09-03)
PROC: B51C1ZZ Fluoroscopy of Left Lower Extremity Veins using Low Osmolar Contrast (ICD-10-PCS; 2021-09-03)
DX: I82.412 Acute embolism and thrombosis of left femoral vein (principal); I26.99 Other pulmonary embolism without acute cor pulmonale; E29.1 Testicular hypofunction; E66.01 Morbid (severe) obesity due to excess calories; G47.33 Obstructive sleep apnea (adult) (pediatric); I10 Essential (primary) hypertension; I25.10 Atherosclerotic heart disease of native coronary artery without angina pectoris; K76.0 Fatty (change of) liver, not elsewhere classified; R73.03 Prediabetes; Z82.49 Family history of ischemic heart disease and other diseases of the circulatory system; Z86.711 Personal history of pulmonary embolism; Z86.718 Personal history of other venous thrombosis and embolism; Z86.72 Personal history of thrombophlebitis; Z20.822 Contact with and (suspected) exposure to COVID-19
CPT/HCPCS: 36415; 37187; 37212; 71045; 71275; 75820; 76937; 80048; 80053; 82378; 82550; 83036; 83880; 84484; 85025; 85027; 85300; 85302; 85306; 85520; 85610; 85730; 86147; 87426; 93005; 93971; 96374; 99152; 99153; C1769; C1892; C1894; G0378; G0379; J1644; J2250; J3010; J3490; Q9967; U0003; U0005; 70330; 99291-25

== ENCOUNTER → 2021-12-03 | Outpatient (CLI) | payer BC ==
[~2021-12-03] MED LIST changes: +ALPR1TAB6 PO; +APIX5TAB PO; +LOSA-73 PO; +METF500T16 PO; +OXYC1TAB15 PO
--- NOTE | 2021-12-03 14:52 | KCIC ---
EXAM: Left knee, 3 views. HISTORY: Pain. COMPARISON: None. FINDINGS: 3 views of the left knee are obtained. There is no fracture, dislocation or subluxation. Th ere is minimal enthesopathy along the superior patella. There is a moderate joint effusion. There is a bone island within the proximal tibial metaphysis. IMPRESSION: 1. Moderate joint effusion. 2. No acute osseous finding. Electronically signed by: Guerline Olvera MD (12/03/2021 2:50 PM) [id number]
== END ==
LOC: KCIC 13:22
PROVIDERS: ATTEND Family Medicine
DX: M25.462 Effusion, left knee (principal); M76.892 Other specified enthesopathies of left lower limb, excluding foot; M25.562 Pain in left knee
CPT/HCPCS: 73562